=== PATIENT | male | born 1960 | race Caucasian/White ===

== ENCOUNTER 2016-11-08 09:24 | Inpatient (IN) | payer SELFPAY ==
[2016-11-08] VITALS (7 sets, daily range): BP systolic 137–189; BP diastolic 81–126
[~2016-11-08] VITALS: Ht 175.3 cm; Wt 88.2 kg
--- NOTE | ~2016-11-08 | WRIGHTHP ---
[place], [place] PATIENT HISTORY AND PHYSICAL EXAM NAME: SANTOS CARVALHO [facility] #: [id number] UNIT #: [id number] ROOM: 425 DOCTOR: NOAH ROSAS MD BIRTHDATE: [birth year] DOS: 11/08/2016 HISTORY OF PRESENT ILLNESS: 1. The patient is a 56-year-old gentleman with a past medical history of CVA with no residual weakness. 2. Hypertension. 3. Fatty liver The patient presented to the Emergency Department at [facility] with complaints of dizziness, nausea, headache and elevated blood pressures. The patient had one half an hour episode of headache couple of days earlier and then headache started before admission and is persisting, he has it in the right and back of the head. CT scan of the head performed in the ER and was negative. The patient's potassium was found to be low. The patient was admitted because of chest pain reported by ER. The patient is asymptomatic other than the headache. The patient stated he gets dizzy when he looks self, but he is not complaining of any photosensitivity or sensitivity to sound. Headache is mainly on his left side. REVIEW OF SYSTEMS: LUNGS: Without increased shortness of breath or wheezing. GASTROINTESTINAL: Patient with nausea, no diarrhea. CARDIOVASCULAR: No chest pains or palpitations. ALLERGIES: NITROGLYCERIN. PHYSICAL EXAMINATION: GENERAL: Alert, oriented x 3, in no visible distress. VITAL SIGNS: Blood pressure 137/81, heart rate 65 beats per minute, breathing 20 times per minute, temperature 98 degrees Fahrenheit. LABORATORY DATA: CT of the head without acute changes. Normal serum electrolytes except for potassium of 3.4. PT, PTT were baseline, normal CBC. IMPRESSION: 1. The patient presenting with left-sided headache, possibly migraine with nausea, which has resolved now. No photophobia. No sound sensitivity. I will treat the patient with ____ 100% oxygen and see if his headaches resolved. The patient has been treated with Toradol and then Tylenol for his headache. 2. Chest pain reported by the Emergency Department, although the patient denies it now. Cardiac enzymes are ordered and a cardiology consult obtained with Dr. Grossman. 3. Benign essential hypertension with elevated blood pressures at admission have normalized now. I will continue with lisinopril and metoprolol, which he was taking at home. 4. Hypokalemia, treated with extra potassium supplements. I will repeat serum electrolytes tomorrow. [place], [place] PATIENT HISTORY AND PHYSICAL EXAM NAME: SANTOS CARVALHO UNIT #: [id number] ROOM: [facility] DOCTOR: NOAH ROSAS MD BIRTHDATE: [birth year] NOAH ROSAS MD CM:HISPHYS:PATIENT HISTORY AND PHYSICAL EXAMINATION [phone] NOAH ROSAS MD 11/08/16 2258 interface
--- NOTE | ~2016-11-08 | CON ---
[place], [place] REPORT OF CONSULTATION [id number] UNIT #: [id number] ROOM: 425 DOCTOR: ESTELLA MORALES MD BIRTHDATE: [birth year] DOS: 11/08/2016 REASON FOR CONSULTATION: Irregular heartbeats, dizziness. HISTORY OF PRESENT ILLNESS: The patient is a 56-year-old man who does have a history of hypertension since about 2008. He states that about that same time, he was told that he also had paroxysmal atrial fibrillation. He states that he has never received a cardioversion shock and has never been anticoagulated, but he states that he has been evaluated for this at a [facility] and several times by Dr. Arcos in [facility]. The patient is not sure why he has not been on anticoagulation therapy and is prescribed an aspirin. The patient presents to the hospital on this occasion because for the last 3 days, he has had a headache, lightheadedness and nausea; 3 days ago, an episode lasted about 30 minutes and then resolved; 2 days ago, the pain began again in his head and has not resolved. He has not had true vertigo, but feels that if he stands up or even looks up, he will fall. The patient denies chest pain at this time, but has had chest pain in the past. He states that he has had cardiac catheterization in the past including [address] [facility]. Those records are not currently available, but will be requested. PAST MEDICAL HISTORY: Entirely from the patient. It includes the followin. Hypertension documented 2008. 2. Paroxysmal atrial fibrillation documented 2008. 3. Stroke with dizziness and weakness around 2008. 4. Atrial fibrillation with rapid ventricular response and elevated cardiac enzymes, 2014, prompting admission to [facility]. The patient states that he did have a heart catheterization at that time, which was unremarkable. FAMILY HISTORY: Positive for stroke in his mother and uncle. Multiple family members have had heart disease, hypertension and diabetes. REVIEW OF SYSTEMS: The patient denies diplopia or loss of vision. He has been lightheaded and near syncopal for the last 3 days. He has had nausea, but denies vomiting. He denies fevers, chills, sweats or recent weight change. He has been anorectic. He denies orthopnea or PND. He does feel weak, but not focally weak. He denies chest pain. He has had headaches. He denies change in bowel or bladder habits. He denies blood in his stools or urine. He denies any skin rashes or swollen joints. He denies any peripheral edema. He denies heat or cold intolerance. He denies excessive anxiety or depression. Remainder of the review of systems is negative except as noted above. SOCIAL HISTORY: The patient has never smoked and does not consume excessive amounts of alcohol. He is . PHYSICAL EXAMINATION: GENERAL: The patient is a well-nourished white male who appears his stated age. VITAL SIGNS: Pulse is 65 and regular, blood pressure is 137/81. He is [place], [place] REPORT OF CONSULTATION NAME: SANTOS CARVALHO UNIT #: [id number] ROOM: [facility] DOCTOR: ESTELLA MORALES MD BIRTHDATE: [birth year] afebrile. He weighs 88.2 kg and has a body mass index of 28.7. HEENT: Normocephalic, atraumatic. Extraocular muscles are intact. Sclerae are clear. Pupils are equal, round and reactive to light. The oral mucosa is moist. Tongue is midline. NECK: Supple. He has no jugular distention. Carotids are full. I heard no bruits. He had no neck or supraclavicular masses. LUNGS: Respirations are unlabored. His chest is clear to auscultation and percussion. He has no presacral edema or chest wall tenderness. CARDIOVASCULAR: His heart has a regular rhythm with a soft S4 gallop, but no S3 or murmur. The PMI is not displaced. He has no precordial heave, lift or thrill. ABDOMEN: Soft and normally active without masses, organomegaly or bruits. EXTREMITIES: Showed no edema. Peripheral pulses are easily palpated in the feet bilaterally. LABORATORY DATA: I reviewed his electrocardiogram. It showed sinus rhythm with probable left ventricular hypertrophy, but no acute ST or T-wave changes. His cardiac care nurse shows sinus rhythm. Sodium is 139 with potassium 3.4, chloride 103, CO2 of 27, BUN 18, creatinine 0.98. Sugar (nonfasting) is 124, magnesium 2.3. Troponin level was less than 0.015. INR is 1.0. Hemoglobin 17.1 with hematocrit 49.1. There are 7100 white cells and 235,000 platelets present. IMPRESSIONS: 1. Lightheadedness and near syncope, etiology to be determined. 2. History of hypertension. 3. Atypical chest pain. The patient reports that he had a heart catheterization in 2014 that was unremarkable. 4. Paroxysmal atrial fibrillation. The patient reports this has been present since 2008. Unfortunately, I have no documentation of atrial arrhythmias at this point. 5. CHADS-VASc score equals 3 if the patient's history of hypertension and stroke are reliable. This predicts a high risk for stroke if he does have atrial fibrillation. PLAN: It seems remarkable to me that the patient has had multiple episodes of atrial fibrillation as he reports and yet we have no documentation of that here and he has never been placed on anticoagulation therapy. If he truly does have paroxysmal atrial fibrillation, his risk of stroke is high and he should be anticoagulated systemically. For now, I will start him on subcutaneous enoxaparin in therapeutic doses of 1 mg/kg q. 12 hours. I will also start a thiazide diuretic to try to improve his blood pressure control and change his metoprolol tartrate from 50 mg once a day to 25 mg twice a day. His other medications will stay the same. We will request records from [facility] from 2015 where he states he was treated for atrial fibrillation and also had a heart catheterization. Further recommendations will depend upon documentation received. I will be checking an echocardiogram at this time as well. We thank Dr. Micah Sotelo for asking our advice regarding the management of this patient. [place], [place] REPORT OF CONSULTATION NAME: SANTOS CARVALHO UNIT #: [id number] ROOM: 425 DOCTOR: ESTELLA MORALES MD BIRTHDATE: [birth year] ESTELLA MORALES MD CM:CONSTR:REPORT OF CONSULTATION 20 11/09/16 0058 interface
--- NOTE | ~2016-11-08 | DS ---
[place], [place] DISCHARGE SUMMARY NAME: SANTOS CARVALHO UNIT #: [id number] ROOM: 425 DOCTOR: NOAH ROSAS MD BIRTHDATE: [birth year] DOS: 11/09/2016 DISCHARGE DIAGNOSES: 1. The patient is getting evaluated by cardiology. 2. Hypertension with elevated blood pressures, atypical chest pains for which the patient's cardiac enzymes were checked and were found to be normal. 3. Benign essential hypertension. The patient is being evaluated for paroxysmal atrial fibrillation by Dr. Ky Grossman. Dr. Grossman is trying to get records on him and if he does have paroxysmal atrial fibrillation, then he has a CHADS-VASc score of 3 and would require anticoagulation. Dr. Grossman to follow on this. Persistent headaches from uncertain etiology, not relieved with oxygen, Toradol, Tylenol or even Dilaudid. I am getting an MRI of the brain. If normal, he can be discharged to home to follow up with his PCP, Dr. Harjit Zamora who can get an expert opinion on his headaches. I plan to discharge patient today after he gets evaluated by Dr. Grossman for AFib and if his blood pressure well controlled. I am increasing the dose of his metoprolol to 50 mg b.i.d. because of persistently elevated blood pressures. Hypokalemia, resolved with extra dose of potassium. DISCHARGE MANAGEMENT: Would be after the patient has MRI and after clearance from cardiology, the patient can be discharged to home on Tylenol 1000 mg t.i.d. p.r.n. for headache, lisinopril 20 mg b.i.d., metoprolol 50 mg b.i.d., Ecotrin 81 mg a day, hydrochlorothiazide 12.5 mg daily. Follow up with Dr. Harjit Zamora within 2 days of discharge and follow up with Dr. Ky Grossman, the briquette operator. [place], [place] DISCHARGE SUMMARY NAME: SANTOS CARVALHO UNIT #: [id number] ROOM: 425 DOCTOR: NOAH ROSAS MD BIRTHDATE: [birth year] NOAH ROSAS MD CM:SHANNAN [id number] NOAH ROSAS MD 11/09/16 1748 interface
[~2016-11-08 09:24] MED LIST: METOPROLOL100 MG PO; TOBRADEX 0.1%-0.5 ML OPH; ZOFRAN ODT4 MG SL
[2016-11-08] MEDS ORDERED: LISINOPRIL20 MG PO (09:33)
[2016-11-08] MEDS ORDERED: ASPIRIN CHEWABL81 MG PO (09:33)
[2016-11-08 10:05] LABS: BASO % 0.6 % (0.0-1.0); EOS # 0.2 10*3/uL (0.0-0.4); EOS % 2.3 % (1.0-4.0); HEMATOCRIT 49.1 % (42.0-52.0); HEMOGLOBIN 17.1 g/dl (14.0-18.0); LYMPH # 2.1 10*3/uL (1.3-4.4); LYMPH % 29.2 % (27.0-41.0); MEAN CELL VOLUME 83.1 fl (80.0-94.0); MEAN CORPUSCULAR HGB 28.9 pg (27.0-31.0); MEAN CORPUSCULAR HGB CONC 34.8 g/dl (33.0-37.0); MEAN PLATELET VOLUME 9.3 fl (9.6-12.3); MONO # 0.5 10*3/uL (0.1-1.0); MONO % 7.5 % (3.0-9.0); NEUT # 4.2 10*3/uL (2.3-7.9); PLATELET COUNT AUTOMATED 235 10*3/uL (130-400); RED BLOOD COUNT 5.91 10*6/uL (4.50-5.90); RED CELL DISTRI WIDTH 12.2 % (0-14.5); WHITE BLOOD COUNT 7.1 10*3/uL (4.8-10.8)
[2016-11-08 10:12] LABS: PROTHROMBIN TIME 10.6 SECONDS (9.0-12.4)
[2016-11-08 10:22] LABS: ALBUMIN 3.7 gm/dl (3.1-4.5); ALKALINE PHOSPHATASE 85 U/L (45-117); BILIRUBIN, TOTAL 0.5 mg/dl (0.2-1.0); BUN 8 mg/dl (7-24); CARBON DIOXIDE 27 mmol/L (21-32); CHLORIDE 103 mmol/L (98-107); EST GLOM FILT AFRICAN AMERICAN > 60 ml/min; GLUCOSE 124 mg/dL (65-99); MAGNESIUM 2.3 mg/dL (1.5-2.1); POTASSIUM 3.4 mmol/L (3.5-5.1); SGOT/AST 36 IU/L (3-35); SGPT/ALT 61 U/L (12-78); SODIUM 139 mmol/L (136-145); TOTAL PROTEIN 7.8 gm/dL (6.4-8.2)
[2016-11-08 10:31] LABS: TROPONIN I < 0.015 ng/ml (<0.045)
[2016-11-08] MEDS ORDERED: LOPRESSOR50 M1 PO (12:45)
[2016-11-09] VITALS: BP 155/80
[2016-11-09 04:56] LABS: BILIRUBIN NEGATIVE (NEGATIVE); BLOOD NEGATIVE (NEGATIVE); CLARITY CLEAR (CLEAR); COLOR YELLOW (YELLOW); GLUCOSE 2+ (NEGATIVE); KETONE NEGATIVE (NEGATIVE); LEUKO ESTERASE NEGATIVE (NEGATIVE); NITRITE NEGATIVE (NEGATIVE); PH 6.5 (5.0-9.0); PROTEIN NEGATIVE (NEGATIVE); SPECIFIC GRAVITY 1.015 (1.005-1.030)
[2016-11-09 05:07] LABS: RBC 0-2 rbc/hpf (0-2); WBC 0-2 wbc/hpf (0-5)
[2016-11-09 08:00] VITALS: BP 170/98
[2016-11-09 08:53] LABS: BUN 8 mg/dl (7-24); CARBON DIOXIDE 29 mmol/L (21-32); CHLORIDE 103 mmol/L (98-107); EST GLOM FILT AFRICAN AMERICAN > 60 ml/min; GLUCOSE 112 mg/dL (65-99); POTASSIUM 4.1 mmol/L (3.5-5.1); SODIUM 139 mmol/L (136-145)
[2016-11-09] MEDS ORDERED: LOPRESSOR50 M1 PO (10:04)
[2016-11-09] MEDS ORDERED: HYDR12.5C PO (10:04)
[2016-11-09 12:00] VITALS: BP 162/90
== END 2016-11-09 16:00 | disposition home or self-care (01) | DRG 313 ==
LOC: ED 09:24 → EDHOLD 11:44 → 4E 11:54
PROVIDERS: Internal Medicine; Nurse Practitioner Family
DX: R07.89 Other chest pain (principal); I10 Essential (primary) hypertension; R51 Headache; E87.6 Hypokalemia; I48.91 Unspecified atrial fibrillation; Z86.73 Personal history of transient ischemic attack (TIA), and cerebral infarction without residual deficits; Z88.8 Allergy status to other drugs, medicaments and biological substances; Z82.3 Family history of stroke; Z82.49 Family history of ischemic heart disease and other diseases of the circulatory system; Z83.3 Family history of diabetes mellitus

== ENCOUNTER 2017-08-12 20:37 | Emergency (ER) | payer BC ==
[~2017-08-12] VITALS: Ht 175.2 cm; Wt 87.5 kg
[~2017-08-12 20:37] MED LIST changes: +ASPIRIN CHEWABL81 MG PO; +HYDR12.5C PO; +LISINOPRIL20 MG PO; +LOPRESSOR50 M1 PO
[2017-08-12 21:07] LABS: BASO % 0.4 % (0.0-1.0); EOS # 0.1 10*3/uL (0.0-0.4); EOS % 0.5 % (1.0-4.0); HEMATOCRIT 43.1 % (42.0-52.0); HEMOGLOBIN 15.2 g/dl (14.0-18.0); LYMPH # 1.2 10*3/uL (1.3-4.4); LYMPH % 10.8 % (27.0-41.0); MEAN CELL VOLUME 84.2 fl (80.0-94.0); MEAN CORPUSCULAR HGB 29.7 pg (27.0-31.0); MEAN CORPUSCULAR HGB CONC 35.3 g/dl (33.0-37.0); MEAN PLATELET VOLUME 9.8 fl (9.6-12.3); MONO # 1.1 10*3/uL (0.1-1.0); MONO % 9.6 % (3.0-9.0); NEUT # 8.8 10*3/uL (2.3-7.9); NEUT % 78.2 % (47.0-73.0); PLATELET COUNT AUTOMATED 209 10*3/uL (130-400); RED BLOOD COUNT 5.12 10*6/uL (4.50-5.90); RED CELL DISTRI WIDTH 12.5 % (0-14.5); WHITE BLOOD COUNT 11.2 10*3/uL (4.8-10.8)
[2017-08-12 21:17] LABS: ACT PARTIAL THROMBO TIME 22.1 SECONDS (20.8-31.5); INTERNATIONAL NORM RATIO 0.9 (2.0-3.5)
[2017-08-12 21:23] LABS: ALBUMIN 3.6 gm/dl (3.1-4.5); ALKALINE PHOSPHATASE 94 U/L (45-117); BUN 13 mg/dl (7-24); CHLORIDE 100 mmol/L (98-107); CREATININE 1.24 mg/dL (0.70-1.30); LIPASE 167 U/L (73-393); POTASSIUM 3.5 mmol/L (3.5-5.1); SGOT/AST 37 IU/L (3-35); SGPT/ALT 61 U/L (12-78); SODIUM 138 mmol/L (136-145); TOTAL PROTEIN 7.6 gm/dL (6.4-8.2)
[2017-08-12 21:24] LABS: TROPONIN I < 0.015 ng/ml (<0.045)
[2017-08-12] MEDS ORDERED: Zofran4 MG PO (22:53)
[2017-08-12] MEDS ORDERED: DICYCLOMINE HCL10 MG PO (22:53)
[2017-08-12 22:59] VITALS: BP 142/100
== END 2017-08-12 23:27 | disposition home or self-care (01) ==
LOC: ED 20:37
PROVIDERS: Nurse Practitioner Family
DX: A08.4 Viral intestinal infection, unspecified (principal); Z88.1 Allergy status to other antibiotic agents; Z79.82 Long term (current) use of aspirin; Z79.899 Other long term (current) drug therapy

== ENCOUNTER 2017-10-30 06:47 | Emergency (ER) | payer BC ==
[~2017-10-30] VITALS: Ht 175.2 cm; Wt 89.8 kg
[~2017-10-30 06:47] MED LIST changes: +DICYCLOMINE HCL10 MG PO; +Zofran4 MG PO
[2017-10-30 06:53] VITALS: BP 168/99
== END 2017-10-30 07:35 | disposition home or self-care (01) ==
LOC: ED 06:47
DX: H93.8X1 Other specified disorders of right ear (principal); I48.91 Unspecified atrial fibrillation; Z88.8 Allergy status to other drugs, medicaments and biological substances; Z79.899 Other long term (current) drug therapy; Z79.82 Long term (current) use of aspirin

== ENCOUNTER 2018-03-20 19:05 | Emergency (ER) | payer BC ==
[~2018-03-20] VITALS: Wt 87.1 kg
[2018-03-20 19:05] VITALS: BP 157/91
[2018-03-20] MEDS ORDERED: AMOXICILLIN500 M2 PO (19:31)
== END 2018-03-20 19:33 | disposition home or self-care (01) ==
LOC: ED 19:05
DX: H66.92 Otitis media, unspecified, left ear (principal); Z88.8 Allergy status to other drugs, medicaments and biological substances; Z79.82 Long term (current) use of aspirin; Z79.899 Other long term (current) drug therapy

== ENCOUNTER 2018-09-19 19:17 | Emergency (ER) | payer MEDICAID ==
[~2018-09-19] VITALS: Ht 175.2 cm; Wt 88.5 kg
--- NOTE | ~2018-09-19 | EKG ---
[place], [place] ELECTROCARDIOGRAM REPORT NAME: SANTOS CARVALHO UNIT #: [id number] ROOM: DOCTOR: EPIPHANY DRAFT REPORT BIRTHDATE: [birth year] [facility] Test Date: 2018-09-19 Test Time: 19:34:10 Pat Name: SANTOS CARVALHO Department: ER Room: 2 Gender: M Dining Room Hostess: Sarahy Maxwell : 1960 Requested By: YANA CHOI Order Number: [id number] Reading MD: Ignacio Barry MD Measurements Intervals [place] Rate: 71 P: 43 IA: 151 QRS: 13 QRSD: 99 T: 3 QT: 419 QTc: 456 Interpretive Statements Sinus rhythm Left ventricular hypertrophy Electronically Signed On 09-21-2018 9:32:13 PDT by Ignacio Barry MD CM:EKGRPT:ELECTROCARDIOGRAM REPORT [phone] YANA CHOI MD EPIPHANY DRAFT REPORT YANA CHOI MD
[~2018-09-19 19:17] MED LIST changes: +AMOXICILLIN500 M2 PO
[2018-09-19 20:04] LABS: BASO # 0.1 10*3/uL (0.0-0.1); BASO % 0.6 % (0.0-1.0); EOS # 0.2 10*3/uL (0.0-0.4); EOS % 2.2 % (1.0-4.0); HEMATOCRIT 43.7 % (42.0-52.0); HEMOGLOBIN 15.2 g/dl (14.0-18.0); LYMPH # 2.6 10*3/uL (1.3-4.4); LYMPH % 29.9 % (27.0-41.0); MEAN CORPUSCULAR HGB 29.6 pg (27.0-31.0); MEAN CORPUSCULAR HGB CONC 34.8 g/dl (33.0-37.0); MEAN PLATELET VOLUME 9.4 fl (9.6-12.3); MONO # 0.6 10*3/uL (0.1-1.0); MONO % 6.7 % (3.0-9.0); NEUT # 5.2 10*3/uL (2.3-7.9); NEUT % 60.1 % (47.0-73.0); PLATELET COUNT AUTOMATED 230 10*3/uL (130-400); RED BLOOD COUNT 5.14 10*6/uL (4.50-5.90); RED CELL DISTRI WIDTH 12.4 % (0-14.5); WHITE BLOOD COUNT 8.6 10*3/uL (4.8-10.8)
[2018-09-19 20:13] LABS: BILIRUBIN NEGATIVE (NEGATIVE); BLOOD NEGATIVE (NEGATIVE); CLARITY CLEAR (CLEAR); COLOR YELLOW (YELLOW); GLUCOSE NEGATIVE (NEGATIVE); KETONE NEGATIVE (NEGATIVE); LEUKO ESTERASE NEGATIVE (NEGATIVE); NITRITE NEGATIVE (NEGATIVE); SPECIFIC GRAVITY 1.015 (1.005-1.030); UROBILINOGEN 0.2 E.U./dl (0.2-1.0)
[2018-09-19 20:14] LABS: ACT PARTIAL THROMBO TIME 23.8 SECONDS (20.8-31.5)
[2018-09-19 20:19] LABS: ALBUMIN 3.8 gm/dl (3.1-4.5); ALKALINE PHOSPHATASE 85 U/L (45-117); BUN 13 mg/dl (7-24); CREATININE 1.13 mg/dL (0.70-1.30); SGOT/AST 44 IU/L (3-35); SGPT/ALT 78 U/L (12-78); TOTAL PROTEIN 7.7 gm/dL (6.4-8.2)
[2018-09-19 20:26] LABS: CHLORIDE 104 mmol/L (98-107); POTASSIUM 3.6 mmol/L (3.5-5.1); SODIUM 140 mmol/L (136-145); TROPONIN I < 0.015 ng/ml (<0.045)
[2018-09-19 20:28] LABS: BACTERIA 1+; EPITHELIAL CELLS 0-2; WBC 0-2 wbc/hpf (0-5)
[2018-09-19 22:11] VITALS: BP 155/108
[2018-09-19] MEDS ORDERED: ZOFRAN4 MG PO (22:38)
[2018-09-27] MEDS ORDERED: METOPROLOL TART50 M1 PO (22:22)
[2018-09-27] MEDS ORDERED: ENALAPRIL MALEA20 MG PO (22:22)
[2018-09-27] MEDS ORDERED: HYDROCHLOROTH12.5 M2 PO (22:23)
== END 2018-09-19 22:58 | disposition home or self-care (01) ==
LOC: ED 19:17
PROVIDERS: Emergency Medicine Emergency Medical Services
DX: R42 Dizziness and giddiness (principal); I10 Essential (primary) hypertension; Z79.82 Long term (current) use of aspirin; Z79.899 Other long term (current) drug therapy; Z88.8 Allergy status to other drugs, medicaments and biological substances

== ENCOUNTER 2019-07-05 16:19 | Inpatient (IN) | payer BC, OTHER ==
[~2019-07-05] VITALS: Ht 175.2 cm; Wt 88.9 kg
[~2019-07-05 16:19] MED LIST changes: +ENALAPRIL MALEA20 MG PO; +HYDROCHLOROTH12.5 M2 PO; +METOPROLOL TART50 M1 PO; +ZOFRAN4 MG PO
[2019-07-05 16:27] VITALS: BP 133/80
[2019-07-05 16:42] LABS: BASO # 0.1 10*3/uL (0.0-0.1); BASO % 0.6 % (0.0-1.0); EOS # 0.2 10*3/uL (0.0-0.4); EOS % 1.8 % (1.0-4.0); HEMATOCRIT 43.6 % (42.0-52.0); HEMOGLOBIN 15.3 g/dl (14.0-18.0); LYMPH # 1.9 10*3/uL (1.3-4.4); LYMPH % 19.1 % (27.0-41.0); MEAN CORPUSCULAR HGB 30.2 pg (27.0-31.0); MEAN CORPUSCULAR HGB CONC 35.1 g/dl (33.0-37.0); MEAN PLATELET VOLUME 9.4 fl (9.6-12.3); MONO # 0.8 10*3/uL (0.1-1.0); MONO % 8.5 % (3.0-9.0); NEUT # 6.7 10*3/uL (2.3-7.9); NEUT % 69.4 % (47.0-73.0); PLATELET COUNT AUTOMATED 260 10*3/uL (130-400); RED BLOOD COUNT 5.07 10*6/uL (4.50-5.90); RED CELL DISTRI WIDTH 12.2 % (0-14.5); WHITE BLOOD COUNT 9.7 10*3/uL (4.8-10.8)
[2019-07-05 16:53] LABS: ACT PARTIAL THROMBO TIME 25.6 SECONDS (20.0-32.1)
[2019-07-05 17:05] LABS: ALBUMIN 3.9 gm/dl (3.1-4.5); ALKALINE PHOSPHATASE 89 U/L (45-117); BUN 12 mg/dl (7-24); CHLORIDE 103 mmol/L (98-107); CREATININE 1.06 mg/dL (0.70-1.30); POTASSIUM 3.6 mmol/L (3.5-5.1); SGOT/AST 28 IU/L (3-35); SGPT/ALT 55 U/L (12-78); SODIUM 138 mmol/L (136-145); TOTAL PROTEIN 7.8 gm/dL (6.4-8.2)
[2019-07-05 17:06] LABS: TROPONIN I < 0.015 ng/ml (<0.045)
--- NOTE | 2019-07-05 17:23 | NUR ---
PT TO CT AT THIS TIME.
[2019-07-05 17:26] VITALS: BP 134/86
[2019-07-05 18:06] VITALS: BP 114/71
[2019-07-05 18:34] VITALS: BP 108/72
--- NOTE | 2019-07-05 19:00 | NUR ---
NURSE TO NURSE REPORT GIVEN.
[2019-07-05 20:04] VITALS: BP 111/68
[2019-07-05 21:45] VITALS: BP 146/84; BP 146/86
--- NOTE | 2019-07-05 21:45 | NUR ---
A 58, admitted to , under the services of ADRYAN Dennis DO with a diagnosis of SYNCOPE. Chief complaint is DIZZY. Patient arrived via bed from ER. Monitor applied. Initial assessment completed. Vital signs taken and recorded. ADRYAN DENNIS DO notified of admission to the unit. Orders received. See assessment for past medical history, medications and allergies. Patient and/or family oriented to unit. [facility] visitation policy reviewed. Clothing/patient valuable form completed. SAM DOW
[2019-07-05] MEDS ORDERED: ELIQUIS5 M1 PO (21:57)
[2019-07-05] MEDS ORDERED: ATORVASTATIN CA80 M1 PO (21:57)
[2019-07-05] MEDS ORDERED: AMLODIPINE BESY10 MG PO (21:57)
[2019-07-05] MEDS ORDERED: VITAMIN D32000 UNI1 PO (21:59)
[2019-07-05] MEDS ORDERED: CLOPIDOGREL75 MG PO (22:00)
[2019-07-06] VITALS: BP 111/67
--- NOTE | 2019-07-06 | NUR ---
ANSWERING SERVICE NOTIFIED OF CONSULT
--- NOTE | 2019-07-06 03:03 | NUR ---
DR MONROE NOTIFIED OF PT'S HR DOWN TO 44. STATES TO ORDER EKG
--- NOTE | 2019-07-06 03:05 | NUR ---
PATIENT ASYMPTOMATIC WITH HR 40-50'S, PT REPORTS NO COMPLAINTS OR DIZZINESS, VITAL SIGNS TAKEN AND STABLE.
[2019-07-06 03:14] VITALS: BP 122/82
--- NOTE | 2019-07-06 04:09 | NUR ---
DR MONROE AND DR PRIDE ON FLOOR STATE TO NOTIFY IF HR <40
[2019-07-06 06:26] LABS: BASO # 0.1 10*3/uL (0.0-0.1); BASO % 0.6 % (0.0-1.0); EOS # 0.2 10*3/uL (0.0-0.4); EOS % 2.3 % (1.0-4.0); HEMATOCRIT 41.7 % (42.0-52.0); HEMOGLOBIN 14.3 g/dl (14.0-18.0); LYMPH # 1.9 10*3/uL (1.3-4.4); LYMPH % 22.5 % (27.0-41.0); MEAN CELL VOLUME 86.9 fl (80.0-94.0); MEAN CORPUSCULAR HGB 29.8 pg (27.0-31.0); MEAN CORPUSCULAR HGB CONC 34.3 g/dl (33.0-37.0); MEAN PLATELET VOLUME 9.4 fl (9.6-12.3); MONO # 0.8 10*3/uL (0.1-1.0); MONO % 9.5 % (3.0-9.0); NEUT # 5.5 10*3/uL (2.3-7.9); NEUT % 64.6 % (47.0-73.0); PLATELET COUNT AUTOMATED 236 10*3/uL (130-400); RED CELL DISTRI WIDTH 12.3 % (0-14.5); WHITE BLOOD COUNT 8.5 10*3/uL (4.8-10.8)
[2019-07-06 06:56] LABS: BUN 13 mg/dl (7-24); CHLORIDE 104 mmol/L (98-107); CHOLESTEROL 108 mg/dL (<200); HDL CHOLESTEROL 26 mg/dl (40-60); LDL CHOLESTEROL 61 mg/dL (9-159); PHOSPHOROUS 3.3 mg/dL (2.5-4.9); POTASSIUM 3.4 mmol/L (3.5-5.1); SODIUM 139 mmol/L (136-145); TRIGLYCERIDES 105 mg/dl (<150); VLDL CHOLESTEROL 21 mg/dL (6-40)
--- NOTE | 2019-07-06 07:30 | NUR ---
PT RESTING IN BED. VOICES NO CONCERNS AT THIS TIME.RESPS EASY AND NON LABORED. NO S/S OF DISTRESS NOTED. VSS. WHITE BOARD UPDATED. CALL LIGHT WITHIN REACH
[2019-07-06 07:51] LABS: VITAMIN D, 25-HYDROXY 22.4 ng/mL (30-100)
[2019-07-06 08:00] VITALS: BP 130/78
[2019-07-06 12:00] VITALS: BP 106/70
[2019-07-06 16:00] VITALS: BP 112/59
[2019-07-06 20:00] VITALS: BP 121/65
[2019-07-07] VITALS: BP 135/72
[2019-07-07 06:49] LABS: BUN 11 mg/dl (7-24); CHLORIDE 107 mmol/L (98-107); CREATININE 0.93 mg/dL (0.70-1.30); POTASSIUM 3.5 mmol/L (3.5-5.1); SODIUM 140 mmol/L (136-145)
--- NOTE | 2019-07-07 07:23 | NUR ---
24 HR chart check completed.
[2019-07-07 08:00] VITALS: BP 140/78
--- NOTE | 2019-07-07 09:00 | NUR ---
RESTING IN BED WITH NO DISTRESS NOTED. RESPIRATIONS EASY. LUNGS DIMINISHED, CLEAR. PULSE OX 98% RA. VSS. CALL LIGHT WITHIN REACH. NO VOICED COMPLAINTS
[2019-07-07 12:00] VITALS: BP 135/72
--- NOTE | 2019-07-07 13:00 | NUR ---
NO VOICED COMPLAINTS
[2019-07-07 16:00] VITALS: BP 138/82; BP 150/92
--- NOTE | 2019-07-07 17:00 | NUR ---
LASYING IN BED WATCHING TV. NO DISTRESS NOTED. NO VOICED COMPLAINTS
[2019-07-07 20:00] VITALS: BP 126/72
[2019-07-08] VITALS: BP 118/76
[2019-07-08 08:00] VITALS: BP 122/68
--- NOTE | 2019-07-08 09:00 | NUR ---
Election Clerk in to talk to patient. Patient states lives at home with alone. There are no steps in the home. Physician: christi liu [facility]acy: [facility] Home health services: none Patient's level of ADLs: INDEPENDENT Patient has working utilities: all working DME: none Follow-up physician's appointment after d/c: will be made by hospitalist nurse director upon discharge Does patient want to access PORTAL?: no Discharge plan discussed with patient, he lives at home, is independent in adls and ambualtion, states he will return home when medically stable and denies any home needs, case management will follow. LISA WILD
--- NOTE | 2019-07-08 10:58 | NUR ---
INFORMED CONSENT SIGNED FOR LEXISCAN STRESS TEST WITH DR. ALMEIDA. RESTING EKG SINUS BRADYCADIA, HR 59, BP 140/92. PULSE OX 97% AND LUNGS CLEAR BILATERALLY. COMPLETED ONE MINUTE OF LEXISCAN PROTOCOL RECEIVING LEXISCAN 0.4MG OVER [address] CHANGES NOTED WITH NO ARRHYTHMIAS NOTED. PT C/O FEELING WOOZY. LAST RECOVERY HR 83, BP 132/90. WAITING NUCLEAR SCANNING IN STABLE CONDITION.
[2019-07-08 12:00] VITALS: BP 146/89
[2019-07-08] MEDS ORDERED: METOPROLOL SUCC25 M2 PO (14:46)
--- NOTE | 2019-07-08 16:15 | NUR ---
Discharge instructions reviewed with patient/family. Patient receptive and verbalizes understanding. Follow-up care arranged. Written instructions given to patient/family. Patient was educated on prescription changes and follow up appointments with and [facility]. Patient amubulated from unit with all personal belongings accounted for. DIMA JOHNSON
== END 2019-07-08 16:15 | disposition home or self-care (01) | DRG 206 ==
LOC: ED 16:19 → EDHOLD 21:15 → 4E 21:15
PROVIDERS: Emergency Medicine; Family Medicine; Student in an Organized Health Care Education/Training Program; ADMIT Family Medicine
PROC: 3E073KZ Introduction of Other Diagnostic Substance into Coronary Artery, Percutaneous Approach (ICD-10-PCS; principal; 2019-07-08)
PROC: 4A02XM4 Measurement of Cardiac Total Activity, External Approach (ICD-10-PCS; principal; 2019-07-08)
DX: M94.0 Chondrocostal junction syndrome [Tietze] (principal); R55 Syncope and collapse; D72.810 Lymphocytopenia; R73.9 Hyperglycemia, unspecified; I48.0 Paroxysmal atrial fibrillation; I10 Essential (primary) hypertension; G47.33 Obstructive sleep apnea (adult) (pediatric); H53.50 Unspecified color vision deficiencies; E87.6 Hypokalemia; Z86.73 Personal history of transient ischemic attack (TIA), and cerebral infarction without residual deficits; I25.2 Old myocardial infarction; Z80.0 Family history of malignant neoplasm of digestive organs; Z80.6 Family history of leukemia; Z83.3 Family history of diabetes mellitus; Z88.8 Allergy status to other drugs, medicaments and biological substances; Z79.01 Long term (current) use of anticoagulants; Z79.899 Other long term (current) drug therapy

== ENCOUNTER → 2020-03-12 | Outpatient (CLI) | payer BC ==
[~2020-03-12] MED LIST changes: +AMLODIPINE BESY10 MG PO; +ATORVASTATIN CA80 M1 PO; +CLOPIDOGREL75 MG PO; +ELIQUIS5 M1 PO; +METOPROLOL SUCC25 M2 PO; +VITAMIN D32000 UNI1 PO
[2020-03-12 12:27] LABS: HEMATOCRIT 42.6 % (42.0-52.0); MEAN CORPUSCULAR HGB 28.9 pg (27.0-31.0); MEAN PLATELET VOLUME 9.5 fl (9.6-12.3); RED BLOOD COUNT 5.01 10*6/uL (4.50-5.90); RED CELL DISTRI WIDTH 12.4 % (0-14.5); WHITE BLOOD COUNT 8.2 10*3/uL (4.8-10.8)
[2020-03-12 12:59] LABS: ALBUMIN 3.6 gm/dl (3.1-4.5); ALKALINE PHOSPHATASE 102 U/L (45-117); BUN 7 mg/dl (7-24); CHLORIDE 105 mmol/L (98-107); CHOLESTEROL 180 mg/dL (<200); CREATININE 0.95 mg/dL (0.70-1.30); HDL CHOLESTEROL 36 mg/dl (40-60); LDL CHOLESTEROL 114 mg/dL (9-159); POTASSIUM 4.2 mmol/L (3.5-5.1); SGOT/AST 47 IU/L (3-35); SGPT/ALT 94 U/L (12-78); SODIUM 138 mmol/L (136-145); TOTAL PROTEIN 7.4 gm/dL (6.4-8.2); TRIGLYCERIDES 150 mg/dl (<150); VLDL CHOLESTEROL 30 mg/dL (6-40)
[2020-03-12 13:17] LABS: VITAMIN D, 25-HYDROXY 24.3 ng/mL (30-100)
== END | disposition home or self-care (01) ==
LOC: LAB 11:52
PROVIDERS: ATTEND Family Medicine
DX: Z12.5 Encounter for screening for malignant neoplasm of prostate (principal); E55.9 Vitamin D deficiency, unspecified; E79.9 Disorder of purine and pyrimidine metabolism, unspecified; E78.00 Pure hypercholesterolemia, unspecified; I10 Essential (primary) hypertension; I63.9 Cerebral infarction, unspecified

== ENCOUNTER → 2020-04-27 | Outpatient (CLI) | payer BC | END | disposition home or self-care (01) | LOC: RAD 13:58 | PROVIDERS: ATTEND Family Medicine | DX: M54.5 Low back pain (principal); M79.662 Pain in left lower leg ==

== ENCOUNTER → 2020-08-17 | Outpatient (CLI) | payer OTHER ==
[2020-08-17 12:22] LABS: HEMATOCRIT 49.5 % (42.0-52.0); MEAN CELL VOLUME 86.1 fl (80.0-94.0); MEAN CORPUSCULAR HGB CONC 33.7 g/dl (33.0-37.0); MEAN PLATELET VOLUME 9.4 fl (9.6-12.3); RED BLOOD COUNT 5.75 10*6/uL (4.50-5.90); RED CELL DISTRI WIDTH 12.1 % (0-14.5); WHITE BLOOD COUNT 8.8 10*3/uL (4.8-10.8)
[2020-08-17 12:38] LABS: ALBUMIN 3.8 gm/dl (3.1-4.5); BUN 13 mg/dl (7-24); CHLORIDE 104 mmol/L (98-107); CHOLESTEROL 223 mg/dL (<200); HDL CHOLESTEROL 42 mg/dl (40-60); LDL CHOLESTEROL 153 mg/dL (9-159); SGPT/ALT 127 U/L (12-78); SODIUM 136 mmol/L (136-145); TOTAL PROTEIN 8.1 gm/dL (6.4-8.2); TRIGLYCERIDES 141 mg/dl (<150); VLDL CHOLESTEROL 28 mg/dL (6-40)
[2020-08-17 12:43] LABS: ALKALINE PHOSPHATASE 98 U/L (45-117); FREE T4 0.88 ng/dl (0.76-1.46); SGOT/AST 62 IU/L (3-35)
== END | disposition home or self-care (01) ==
LOC: LAB 11:52
PROVIDERS: ATTEND Family Medicine
DX: E78.00 Pure hypercholesterolemia, unspecified (principal); I48.91 Unspecified atrial fibrillation; E11.9 Type 2 diabetes mellitus without complications; I10 Essential (primary) hypertension; I63.9 Cerebral infarction, unspecified; M21.372 Foot drop, left foot

== ENCOUNTER → 2020-09-04 | Outpatient (CLI) | payer OTHER ==
[2020-09-04 07:56] LABS: BASO % 0.4 % (0.0-1.0); EOS # 0.2 10*3/uL (0.0-0.4); EOS % 2.2 % (1.0-4.0); HEMATOCRIT 46.8 % (42.0-52.0); LYMPH # 1.9 10*3/uL (1.3-4.4); LYMPH % 26.3 % (27.0-41.0); MEAN CELL VOLUME 86.7 fl (80.0-94.0); MEAN CORPUSCULAR HGB 29.3 pg (27.0-31.0); MEAN CORPUSCULAR HGB CONC 33.8 g/dl (33.0-37.0); MEAN PLATELET VOLUME 9.5 fl (9.6-12.3); MONO # 0.6 10*3/uL (0.1-1.0); MONO % 8.2 % (3.0-9.0); NEUT # 4.6 10*3/uL (2.3-7.9); NEUT % 62.5 % (47.0-73.0); PLATELET COUNT AUTOMATED 292 10*3/uL (130-400); RED CELL DISTRI WIDTH 12.3 % (0-14.5); WHITE BLOOD COUNT 7.3 10*3/uL (4.8-10.8)
[2020-09-04 08:42] LABS: ALBUMIN 3.9 gm/dl (3.1-4.5); ALKALINE PHOSPHATASE 95 U/L (45-117); BILIRUBIN, DIRECT 0.2 mg/dL (0.0-0.2); BUN 13 mg/dl (7-24); CHLORIDE 105 mmol/L (98-107); CHOLESTEROL 191 mg/dL (<200); CREATININE 1.03 mg/dL (0.70-1.30); HDL CHOLESTEROL 39 mg/dl (40-60); LDL CHOLESTEROL 127 mg/dL (9-159); POTASSIUM 3.6 mmol/L (3.5-5.1); SGOT/AST 41 IU/L (3-35); SGPT/ALT 104 U/L (12-78); SODIUM 139 mmol/L (136-145); TOTAL PROTEIN 8.1 gm/dL (6.4-8.2); TRIGLYCERIDES 125 mg/dl (<150); VLDL CHOLESTEROL 25 mg/dL (6-40)
[2020-09-04 08:49] LABS: THYROID STIM HORMONE (HS) 0.853 uIU/ml (0.358-4.75)
[2020-09-11 13:06] LABS: METHYLMALONIC ACID 168 nmol/L (0-378)
== END | disposition home or self-care (01) ==
LOC: LAB 07:33 → MRI 08:00
PROVIDERS: ATTEND Psychiatry & Neurology Neurology
DX: I63.89 Other cerebral infarction (principal); R29.898 Other symptoms and signs involving the musculoskeletal system

== ENCOUNTER → 2020-09-08 | Outpatient (CLI) | payer OTHER | END | disposition home or self-care (01) | LOC: RAD 17:01 | PROVIDERS: ATTEND Psychiatry & Neurology Neurology | DX: M51.36 Other intervertebral disc degeneration, lumbar region (principal); Q76.49 Other congenital malformations of spine, not associated with scoliosis ==

== ENCOUNTER 2020-09-18 07:35 | Emergency (ER) | payer OTHER ==
[~2020-09-18] VITALS: Ht 175.3 cm; Wt 86.2 kg
[2020-09-18 08:18] VITALS: BP 158/90
[2020-09-18 08:23] LABS: BASO % 0.6 % (0.0-1.0); EOS # 0.2 10*3/uL (0.0-0.4); EOS % 3.1 % (1.0-4.0); HEMATOCRIT 44.9 % (42.0-52.0); LYMPH # 1.5 10*3/uL (1.3-4.4); MEAN CORPUSCULAR HGB 29.5 pg (27.0-31.0); MEAN CORPUSCULAR HGB CONC 34.3 g/dl (33.0-37.0); MEAN PLATELET VOLUME 9.4 fl (9.6-12.3); MONO # 0.5 10*3/uL (0.1-1.0); MONO % 7.9 % (3.0-9.0); NEUT # 4.2 10*3/uL (2.3-7.9); NEUT % 64.9 % (47.0-73.0); PLATELET COUNT AUTOMATED 251 10*3/uL (130-400); RED BLOOD COUNT 5.22 10*6/uL (4.50-5.90); RED CELL DISTRI WIDTH 12.4 % (0-14.5); WHITE BLOOD COUNT 6.4 10*3/uL (4.8-10.8)
[2020-09-18 08:34] LABS: ACT PARTIAL THROMBO TIME 25.7 SECONDS (20.0-32.1)
[2020-09-18 08:39] LABS: ALBUMIN 3.6 gm/dl (3.1-4.5); ALKALINE PHOSPHATASE 85 U/L (45-117); BUN 9 mg/dl (7-24); CHLORIDE 107 mmol/L (98-107); CREATININE 0.91 mg/dL (0.70-1.30); LIPASE 136 U/L (73-393); POTASSIUM 3.7 mmol/L (3.5-5.1); SGOT/AST 26 IU/L (3-35); SGPT/ALT 60 U/L (12-78); SODIUM 139 mmol/L (136-145); TOTAL PROTEIN 7.1 gm/dL (6.4-8.2)
[2020-09-18 08:42] LABS: TROPONIN I < 0.015 ng/ml (<0.045)
== END 2020-09-18 12:52 | disposition home or self-care (01) ==
LOC: ED 07:35
PROVIDERS: Emergency Medicine
DX: H54.7 Unspecified visual loss (principal); Z79.899 Other long term (current) drug therapy; Z88.8 Allergy status to other drugs, medicaments and biological substances

== ENCOUNTER → 2021-02-25 | Outpatient (CLI) | payer OTHER | END | disposition home or self-care (01) | LOC: COVID19 15:42 | PROVIDERS: ATTEND Internal Medicine | DX: U07.1 COVID-19 (principal) ==

== ENCOUNTER 2021-05-28 08:49 | Emergency (ER) | payer OTHER ==
[~2021-05-28] VITALS: Ht 175.2 cm; Wt 87.1 kg
[2021-05-28 09:46] LABS: BASO # 0.1 10*3/uL (0.0-0.1); BASO % 0.6 % (0.0-1.0); EOS # 0.2 10*3/uL (0.0-0.4); EOS % 2.5 % (1.0-4.0); HEMATOCRIT 45.4 % (42.0-52.0); LYMPH # 2.2 10*3/uL (1.3-4.4); LYMPH % 24.9 % (27.0-41.0); MEAN CORPUSCULAR HGB CONC 34.1 g/dl (33.0-37.0); MEAN PLATELET VOLUME 9.1 fl (9.6-12.3); MONO # 0.8 10*3/uL (0.1-1.0); MONO % 8.5 % (3.0-9.0); NEUT # 5.7 10*3/uL (2.3-7.9); NEUT % 63.1 % (47.0-73.0); PLATELET COUNT AUTOMATED 235 10*3/uL (130-400); RED BLOOD COUNT 5.34 10*6/uL (4.50-5.90); RED CELL DISTRI WIDTH 12.9 % (0-14.5)
[2021-05-28 09:59] VITALS: BP 168/96
[2021-05-28 10:09] LABS: ALBUMIN 3.6 gm/dl (3.1-4.5); ALKALINE PHOSPHATASE 74 U/L (45-117); BUN 13 mg/dl (7-24); CHLORIDE 104 mmol/L (98-107); POTASSIUM 4.1 mmol/L (3.5-5.1); SGOT/AST 33 IU/L (3-35); SGPT/ALT 62 U/L (12-78); SODIUM 136 mmol/L (136-145); TOTAL PROTEIN 7.4 gm/dL (6.4-8.2)
[2021-05-28] MEDS ORDERED: AVPAK AZITHROM250 MG PO (10:29)
[2021-05-28] MEDS ORDERED: PREDNISONE50 MG PO (10:29)
== END 2021-05-28 10:33 | disposition home or self-care (01) ==
LOC: ED 08:49
PROVIDERS: Family Medicine
DX: J40 Bronchitis, not specified as acute or chronic (principal); Z20.822 Contact with and (suspected) exposure to COVID-19; Z88.8 Allergy status to other drugs, medicaments and biological substances; Z79.899 Other long term (current) drug therapy; Z98.61 Coronary angioplasty status

== ENCOUNTER 2021-07-20 05:55 | Emergency (ER) | payer OTHER ==
[~2021-07-20] VITALS: Ht 175.2 cm; Wt 87.1 kg
[~2021-07-20 05:55] MED LIST changes: +AVPAK AZITHROM250 MG PO; +PREDNISONE50 MG PO
[2021-07-20 06:05] VITALS: BP 133/85
[2021-07-20] MEDS ORDERED: TYLENOL325 M1 PO (07:35)
[2021-07-20] MEDS ORDERED: VOLTAREN ARTHRI20 GM T (07:35)
== END 2021-07-20 07:41 | disposition home or self-care (01) ==
LOC: ED 05:55
DX: S76.011A Strain of muscle, fascia and tendon of right hip, initial encounter (principal); I10 Essential (primary) hypertension; I48.91 Unspecified atrial fibrillation; Z88.8 Allergy status to other drugs, medicaments and biological substances; Z79.899 Other long term (current) drug therapy; Z86.73 Personal history of transient ischemic attack (TIA), and cerebral infarction without residual deficits; Z98.890 Other specified postprocedural states; W18.42XA Slipping, tripping and stumbling without falling due to stepping into hole or opening, initial encounter; Y93.89 Activity, other specified; Y92.89 Other specified places as the place of occurrence of the external cause; Y99.8 Other external cause status

== ENCOUNTER → 2021-09-13 | Outpatient (CLI) | payer OTHER ==
[~2021-09-13] MED LIST changes: +TYLENOL325 M1 PO; +VOLTAREN ARTHRI20 GM T
== END | disposition home or self-care (01) ==
LOC: MRI 10:38
PROVIDERS: ATTEND Family Medicine
DX: I63.89 Other cerebral infarction (principal); R53.1 Weakness

== ENCOUNTER 2022-05-01 01:36 | Emergency (ER) | payer OTHER ==
[~2022-05-01] VITALS: Ht 175.2 cm; Wt 93.0 kg
[2022-05-01 01:51] VITALS: BP 108/107
[2022-05-01] MEDS ORDERED: PENICILLIN VK500 MG PO (02:00)
== END 2022-05-01 02:21 | disposition home or self-care (01) ==
LOC: ED 01:36
DX: K02.9 Dental caries, unspecified (principal); Z98.890 Other specified postprocedural states; Z88.8 Allergy status to other drugs, medicaments and biological substances

== ENCOUNTER 2022-10-26 16:45 | Emergency (ER) | payer MEDICAID ==
[~2022-10-26] VITALS: Ht 175.2 cm; Wt 89.8 kg
[~2022-10-26 16:45] MED LIST changes: +ASPIRIN ADULT L81 M1 PO; +COREG6.25 MG PO; +GLIMEPIRIDE4 M1 PO; +PENICILLIN VK500 MG PO
[2022-10-26 16:52] VITALS: BP 176/105
[2022-10-26 17:19] LABS: BASO # 0.1 10*3/uL (0.0-0.1); BASO % 0.6 % (0.0-1.0); EOS # 0.1 10*3/uL (0.0-0.4); EOS % 1.7 % (1.0-4.0); HEMATOCRIT 45.1 % (42.0-52.0); LYMPH % 23.4 % (27.0-41.0); MEAN CELL VOLUME 85.1 fl (80.0-94.0); MEAN CORPUSCULAR HGB 29.4 pg (27.0-31.0); MEAN CORPUSCULAR HGB CONC 34.6 g/dl (33.0-37.0); MEAN PLATELET VOLUME 9.2 fl (9.6-12.3); MONO # 0.7 10*3/uL (0.1-1.0); MONO % 8.2 % (3.0-9.0); NEUT # 5.5 10*3/uL (2.3-7.9); NEUT % 65.4 % (47.0-73.0); PLATELET COUNT AUTOMATED 278 10*3/uL (130-400); RED CELL DISTRI WIDTH 12.6 % (0-14.5); WHITE BLOOD COUNT 8.4 10*3/uL (4.8-10.8)
[2022-10-26 17:45] LABS: ALKALINE PHOSPHATASE 78 U/L (46-116); BUN 10 mg/dl (9-23); CHLORIDE 103 mmol/L (98-107); LIPASE 38 U/L (12-53); POTASSIUM 3.6 mmol/L (3.4-5.1); SGPT/ALT 39 U/L (10-49); TOTAL PROTEIN 7.4 gm/dL (6.0-8.0)
[2022-10-26 17:48] LABS: ACT PARTIAL THROMBO TIME 29.1 SECONDS (20.0-32.1)
[2022-10-26 17:49] VITALS: BP 157/92
[2022-10-26] MEDS ORDERED: CARVEDILOL6.25 MG PO (17:50)
[2022-10-26] MEDS ORDERED: AMOXICILLIN500 M2 PO (17:50)
== END 2022-10-26 19:17 | disposition left against medical advice (07) ==
LOC: ED 16:45 → EDHOLD 19:16 → ED 19:16 → EDHOLD 20:01
PROVIDERS: Emergency Medicine
DX: R53.1 Weakness (principal); R51.9 Headache, unspecified; R20.0 Anesthesia of skin; Z88.8 Allergy status to other drugs, medicaments and biological substances; Z79.2 Long term (current) use of antibiotics; Z79.899 Other long term (current) drug therapy; Z79.82 Long term (current) use of aspirin

== ENCOUNTER → 2023-08-23 | Outpatient (CLI) | payer OTHER ==
[~2023-08-23] MED LIST changes: +CARVEDILOL6.25 MG PO
[2023-08-23 13:36] LABS: BASO # 0.1 10*3/uL (0.0-0.1); BASO % 0.6 % (0.0-1.0); EOS # 0.1 10*3/uL (0.0-0.4); EOS % 1.7 % (1.0-4.0); LYMPH # 2.2 10*3/uL (1.3-4.4); LYMPH % 28.4 % (27.0-41.0); MEAN CELL VOLUME 84.6 fl (80.0-94.0); MEAN CORPUSCULAR HGB 28.9 pg (27.0-31.0); MEAN CORPUSCULAR HGB CONC 34.1 g/dl (33.0-37.0); MEAN PLATELET VOLUME 9.5 fl (9.6-12.3); MONO # 0.6 10*3/uL (0.1-1.0); MONO % 7.8 % (3.0-9.0); NEUT # 4.7 10*3/uL (2.3-7.9); NEUT % 60.7 % (47.0-73.0); PLATELET COUNT AUTOMATED 231 10*3/uL (130-400); RED BLOOD COUNT 6.03 10*6/uL (4.50-5.90); RED CELL DISTRI WIDTH 12.3 % (0-14.5); WHITE BLOOD COUNT 7.7 10*3/uL (4.8-10.8)
[2023-08-23 13:59] LABS: ALKALINE PHOSPHATASE 92 U/L (46-116); BUN 9 mg/dl (9-23); CHLORIDE 101 mmol/L (98-107); CHOLESTEROL 206 mg/dL (<200); LDL CHOLESTEROL 129 mg/dL (9-159); POTASSIUM 3.8 mmol/L (3.4-5.1); SGPT/ALT 79 U/L (5-49); TOTAL PROTEIN 7.7 gm/dL (6.0-8.0); TRIGLYCERIDES 191 mg/dl (<150)
[2023-08-23 14:02] LABS: VITAMIN D, 25-HYDROXY 10.7 ng/mL (30-100)
== END | disposition home or self-care (01) ==
LOC: LAB 12:57
PROVIDERS: ATTEND Family Medicine
DX: Z12.5 Encounter for screening for malignant neoplasm of prostate (principal); I10 Essential (primary) hypertension; E78.00 Pure hypercholesterolemia, unspecified; R53.83 Other fatigue; E55.9 Vitamin D deficiency, unspecified; E11.9 Type 2 diabetes mellitus without complications; I63.9 Cerebral infarction, unspecified

== ENCOUNTER 2023-08-31 07:19 | Emergency (ER) | payer OTHER ==
[~2023-08-31] VITALS: Ht 175.2 cm; Wt 86.2 kg
[2023-08-31 07:24] VITALS: BP 152/89
[2023-08-31] MEDS ORDERED: diphenhydrAMINE hydrochloride 50 MG/ML VIAL IV ONE (07:40)
[2023-08-31] MEDS ORDERED: SODIUM CHLORIDE 0.9% 1,000 ML IV ONE (07:40)
[2023-08-31] MEDS ORDERED: Metoclopramide Hydrochloride 10 MG/2 ML AMP IV ONE (07:40)
[2023-08-31] MEDS ORDERED: FAMOTIDINE 50 ML IV ONE (07:40)
[2023-08-31 07:58] LABS: BASO % 0.6 % (0.0-1.0); EOS # 0.2 10*3/uL (0.0-0.4); EOS % 2.3 % (1.0-4.0); HEMATOCRIT 46.5 % (42.0-52.0); LYMPH # 2.2 10*3/uL (1.3-4.4); LYMPH % 31.2 % (27.0-41.0); MEAN CELL VOLUME 85.2 fl (80.0-94.0); MEAN CORPUSCULAR HGB 29.3 pg (27.0-31.0); MEAN CORPUSCULAR HGB CONC 34.4 g/dl (33.0-37.0); MEAN PLATELET VOLUME 9.1 fl (9.6-12.3); MONO # 0.7 10*3/uL (0.1-1.0); MONO % 10.2 % (3.0-9.0); NEUT # 3.8 10*3/uL (2.3-7.9); NEUT % 55.1 % (47.0-73.0); PLATELET COUNT AUTOMATED 208 10*3/uL (130-400); RED BLOOD COUNT 5.46 10*6/uL (4.50-5.90); RED CELL DISTRI WIDTH 12.6 % (0-14.5); WHITE BLOOD COUNT 6.9 10*3/uL (4.8-10.8)
[2023-08-31 08:28] LABS: ALKALINE PHOSPHATASE 75 U/L (46-116); BUN 12 mg/dl (9-23); CHLORIDE 103 mmol/L (98-107); LIPASE 47 U/L (12-53); POTASSIUM 3.3 mmol/L (3.4-5.1); SGPT/ALT 72 U/L (5-49); TOTAL PROTEIN 7.2 gm/dL (6.0-8.0)
[2023-08-31] MEDS ORDERED: POTASSIUM CHLORIDE 20 MEQ TAB PO ONE (08:45)
[2023-08-31] MEDS ORDERED: ONDANSETRON4 MG SL (08:57)
[2023-08-31] MEDS ORDERED: CIPRO500 MG PO (08:57)
== END 2023-08-31 09:28 | disposition home or self-care (01) ==
LOC: ED 07:19
PROVIDERS: Emergency Medicine
DX: R11.2 Nausea with vomiting, unspecified (principal); R19.7 Diarrhea, unspecified; E87.6 Hypokalemia; I10 Essential (primary) hypertension; E78.5 Hyperlipidemia, unspecified; I48.91 Unspecified atrial fibrillation; E11.9 Type 2 diabetes mellitus without complications; Z88.8 Allergy status to other drugs, medicaments and biological substances; Z95.5 Presence of coronary angioplasty implant and graft

== ENCOUNTER 2023-11-20 10:37 | Emergency (ER) | payer OTHER ==
[~2023-11-20] VITALS: Ht 175.2 cm; Wt 95.3 kg
[~2023-11-20 10:37] MED LIST changes: +CIPRO500 MG PO; +ONDANSETRON4 MG SL
[2023-11-20 10:53] VITALS: BP 164/108
[2023-11-20] MEDS ORDERED: METFORMIN XR500 MG PO (10:56)
[2023-11-20] MEDS ORDERED: ATORVASTATIN CA10 M1 PO (10:56)
[2023-11-20] MEDS ORDERED: LOSARTAN POTASS25 M1 PO (10:56)
[2023-11-20] MEDS ORDERED: SODIUM CHLORIDE 0.9% 1,000 ML IV ONE (11:05)
[2023-11-20] MEDS ORDERED: methylPREDNISolone sod succ 125 MG VIAL IV ONE (11:05)
[2023-11-20] MEDS ORDERED: diphenhydrAMINE hydrochloride 50 MG/ML VIAL IV ONE (11:10)
[2023-11-20] MEDS ORDERED: FAMOTIDINE 50 ML IV ONE (11:10)
[2023-11-20 11:21] LABS: BASO % 0.5 % (0.0-1.0); EOS # 0.2 10*3/uL (0.0-0.4); HEMATOCRIT 45.6 % (42.0-52.0); LYMPH # 2.1 10*3/uL (1.3-4.4); LYMPH % 25.9 % (27.0-41.0); MEAN CELL VOLUME 83.2 fl (80.0-94.0); MEAN CORPUSCULAR HGB 29.6 pg (27.0-31.0); MEAN CORPUSCULAR HGB CONC 35.5 g/dl (33.0-37.0); MEAN PLATELET VOLUME 9.4 fl (9.6-12.3); MONO # 0.6 10*3/uL (0.1-1.0); MONO % 7.9 % (3.0-9.0); NEUT # 5.2 10*3/uL (2.3-7.9); NEUT % 63.2 % (47.0-73.0); PLATELET COUNT AUTOMATED 207 10*3/uL (130-400); RED BLOOD COUNT 5.48 10*6/uL (4.50-5.90); RED CELL DISTRI WIDTH 12.6 % (0-14.5); WHITE BLOOD COUNT 8.1 10*3/uL (4.8-10.8)
[2023-11-20 11:52] LABS: BUN 7 mg/dl (9-23); CHLORIDE 108 mmol/L (98-107); POTASSIUM 3.7 mmol/L (3.4-5.1)
[2023-11-20] MEDS ORDERED: SEPTDS PO (12:44)
[2023-11-20] MEDS ORDERED: CEPHALEXIN500 M1 PO (12:44)
[2023-11-20] MEDS ORDERED: Sulfamethoxazole/Trimethopri 1 TAB TAB PO ONE (12:50)
[2023-11-20] MEDS ORDERED: CEPHALEXIN 500 MG CAP PO ONE (12:50)
== END 2023-11-20 13:19 | disposition home or self-care (01) ==
LOC: ED 10:37
PROVIDERS: Nurse Practitioner Family
DX: K13.0 Diseases of lips (principal); I10 Essential (primary) hypertension; Z88.8 Allergy status to other drugs, medicaments and biological substances; Z79.899 Other long term (current) drug therapy; Z79.82 Long term (current) use of aspirin; Z86.73 Personal history of transient ischemic attack (TIA), and cerebral infarction without residual deficits

== ENCOUNTER → 2024-07-30 | Outpatient (CLI) | payer OTHER ==
[~2024-07-30] MED LIST changes: +ATORVASTATIN CA10 M1 PO; +CEPHALEXIN500 M1 PO; +LOSARTAN POTASS25 M1 PO; +METFORMIN XR500 MG PO; +SEPTDS PO
[2024-07-30 09:17] LABS: HEMATOCRIT 49.1 % (42.0-52.0); MEAN CELL VOLUME 84.1 fl (80.0-94.0); MEAN CORPUSCULAR HGB 28.4 pg (27.0-31.0); MEAN CORPUSCULAR HGB CONC 33.8 g/dl (33.0-37.0); MEAN PLATELET VOLUME 9.1 fl (9.6-12.3); RED BLOOD COUNT 5.84 10*6/uL (4.50-5.90); RED CELL DISTRI WIDTH 12.7 % (0-14.5); WHITE BLOOD COUNT 7.7 10*3/uL (4.8-10.8)
[2024-07-30 09:52] LABS: ALKALINE PHOSPHATASE 98 U/L (46-116); BUN 9 mg/dl (9-23); CHLORIDE 99 mmol/L (98-107); CHOLESTEROL 211 mg/dL (<200); CPK 63 U/L (34-171); LDL CHOLESTEROL 151 mg/dL (9-159); POTASSIUM 3.2 mmol/L (3.4-5.1); SGPT/ALT 35 U/L (5-49); TRIGLYCERIDES 115 mg/dl (<150)
[2024-07-30 09:56] LABS: VITAMIN D, 25-HYDROXY 16.2 ng/mL (30-100)
== END | disposition home or self-care (01) ==
LOC: LAB 09:05
PROVIDERS: ATTEND Family Medicine
DX: Z12.5 Encounter for screening for malignant neoplasm of prostate (principal); E78.00 Pure hypercholesterolemia, unspecified; I10 Essential (primary) hypertension; E11.9 Type 2 diabetes mellitus without complications; R53.83 Other fatigue; E55.9 Vitamin D deficiency, unspecified

== ENCOUNTER 2024-09-04 23:24 | Emergency (ER) | payer OTHER ==
[~2024-09-04] VITALS: Ht 175.2 cm; Wt 82.6 kg
[2024-09-04 23:35] VITALS: BP 181/102
[2024-09-05 00:25] LABS: BASO # 0.1 10*3/uL (0.0-0.1); BASO % 0.6 % (0.0-1.0); EOS # 0.1 10*3/uL (0.0-0.4); EOS % 1.7 % (1.0-4.0); HEMATOCRIT 46.4 % (42.0-52.0); MEAN CELL VOLUME 83.3 fl (80.0-94.0); MEAN CORPUSCULAR HGB 28.4 pg (27.0-31.0); MEAN CORPUSCULAR HGB CONC 34.1 g/dl (33.0-37.0); MEAN PLATELET VOLUME 9.3 fl (9.6-12.3); MONO # 0.7 10*3/uL (0.1-1.0); NEUT # 4.4 10*3/uL (2.3-7.9); PLATELET COUNT AUTOMATED 227 10*3/uL (130-400); RED BLOOD COUNT 5.57 10*6/uL (4.50-5.90); RED CELL DISTRI WIDTH 12.4 % (0-14.5); WHITE BLOOD COUNT 8.1 10*3/uL (4.8-10.8)
[2024-09-05 00:50] LABS: BUN 13 mg/dl (9-23); CHLORIDE 99 mmol/L (98-107); POTASSIUM 3.8 mmol/L (3.4-5.1)
[2024-09-05] MEDS ORDERED: INSULIN REGULAR, HUMAN 1 UNIT/0.01 ML SC ONE (01:05)
[2024-09-05] MEDS ORDERED: Ketorolac Tromethamine 30 MG/ML VIAL IM ONE (01:05)
== END 2024-09-05 01:21 | disposition home or self-care (01) ==
LOC: ED 23:24
PROVIDERS: Internal Medicine
DX: E11.65 Type 2 diabetes mellitus with hyperglycemia (principal); M54.9 Dorsalgia, unspecified; Z88.1 Allergy status to other antibiotic agents; Z79.2 Long term (current) use of antibiotics; Z79.899 Other long term (current) drug therapy; Z79.84 Long term (current) use of oral hypoglycemic drugs; Z79.82 Long term (current) use of aspirin

== ENCOUNTER → 2024-09-12 | Outpatient (CLI) | payer OTHER | END | disposition home or self-care (01) | LOC: RAD 11:37 | PROVIDERS: ATTEND Family Medicine | DX: M48.02 Spinal stenosis, cervical region (principal); M50.322 Other cervical disc degeneration at C5-C6 level; M50.323 Other cervical disc degeneration at C6-C7 level ==

== ENCOUNTER → 2024-11-28 | Outpatient (CLI) | payer OTHER ==
[2024-11-28 08:46] LABS: BASO # 0.1 10*3/uL (0.0-0.1); BASO % 0.5 % (0.0-1.0); EOS # 0.2 10*3/uL (0.0-0.4); EOS % 1.7 % (1.0-4.0); MEAN CELL VOLUME 83.7 fl (80.0-94.0); MEAN CORPUSCULAR HGB 28.6 pg (27.0-31.0); MEAN PLATELET VOLUME 9.3 fl (9.6-12.3); MONO # 0.7 10*3/uL (0.1-1.0); MONO % 7.2 % (3.0-9.0); NEUT # 6.2 10*3/uL (2.3-7.9); NEUT % 64.9 % (47.0-73.0); NUCLEATED RED BLOOD CELL 0.0 % (0.0-0.0); NUCLEATED RED BLOOD CELL 0.0 10*3/uL (0.0-0.0); PLATELET COUNT AUTOMATED 232 10*3/uL (130-400); RED CELL DISTRI WIDTH 12.7 % (0-14.5)
[2024-11-28 08:57] LABS: ACT PARTIAL THROMBO TIME 24.8 SECONDS (20.0-32.1)
[2024-11-28 09:07] LABS: BUN 15 mg/dl (9-23); CPK 79 U/L (34-171); LDL CHOLESTEROL 119 mg/dL (9-159); SGPT/ALT 53 U/L (5-49)
== END | disposition home or self-care (01) ==
LOC: LAB 08:16
PROVIDERS: ATTEND Family Medicine
DX: J98.11 Atelectasis (principal); E11.9 Type 2 diabetes mellitus without complications; R06.02 Shortness of breath; K92.2 Gastrointestinal hemorrhage, unspecified; I51.7 Cardiomegaly; N40.0 Benign prostatic hyperplasia without lower urinary tract symptoms

== ENCOUNTER → 2025-02-06 | Outpatient (CLI) | payer OTHER | END | disposition home or self-care (01) | LOC: RESCLI 09:41 | PROVIDERS: ATTEND Family Medicine | DX: E11.9 Type 2 diabetes mellitus without complications (principal); I48.91 Unspecified atrial fibrillation; I10 Essential (primary) hypertension; E78.00 Pure hypercholesterolemia, unspecified; E55.9 Vitamin D deficiency, unspecified; R97.20 Elevated prostate specific antigen [PSA]; G31.84 Mild cognitive impairment of uncertain or unknown etiology; Z71.89 Other specified counseling; Z79.899 Other long term (current) drug therapy; Z88.8 Allergy status to other drugs, medicaments and biological substances ==

== ENCOUNTER → 2025-03-17 | Outpatient (CLI) | payer OTHER | END | disposition home or self-care (01) | LOC: LAB 17:05 | PROVIDERS: ATTEND Internal Medicine | DX: R59.0 Localized enlarged lymph nodes (principal); R06.00 Dyspnea, unspecified ==

== ENCOUNTER 2025-04-25 15:01 | Emergency (ER) | payer OTHER ==
[~2025-04-25] VITALS: Ht 175.2 cm; Wt 84.8 kg
[2025-04-25 15:11] VITALS: BP 130/103
[2025-04-25] MEDS ORDERED: TAMSULOSIN HCL0.4 MG PO (15:23)
[2025-04-25] MEDS ORDERED: ROSUVASTATIN CA40 MG PO (15:23)
[2025-04-25] MEDS ORDERED: LANTUS SOL100 UNIT/1 SC (15:25)
[2025-04-25] MEDS ORDERED: SODIUM CHLORIDE 0.9% 1,000 ML IV ONE (15:25)
[2025-04-25] MEDS ORDERED: MAGNESIUM SULFATE 100 ML IV ONE (15:25)
[2025-04-25 15:41] LABS: BASO # 0.1 10*3/uL (0.0-0.1); BASO % 0.5 % (0.0-1.0); EOS # 0.1 10*3/uL (0.0-0.4); EOS % 1.4 % (1.0-4.0); MEAN CELL VOLUME 84.1 fl (80.0-94.0); MEAN CORPUSCULAR HGB 28.7 pg (27.0-31.0); MEAN PLATELET VOLUME 9.5 fl (9.6-12.3); MONO # 0.8 10*3/uL (0.1-1.0); MONO % 7.5 % (3.0-9.0); NEUT # 6.2 10*3/uL (2.3-7.9); NEUT % 62.0 % (47.0-73.0); NUCLEATED RED BLOOD CELL 0.0 % (0.0-0.0); NUCLEATED RED BLOOD CELL 0.0 10*3/uL (0.0-0.0); PLATELET COUNT AUTOMATED 232 10*3/uL (130-400); RED CELL DISTRI WIDTH 12.3 % (0-14.5)
[2025-04-25 15:48] VITALS: BP 99/78
[2025-04-25 16:11] LABS: BUN 15 mg/dl (9-23); SGPT/ALT 37 U/L (5-49)
[2025-04-25 16:16] VITALS: BP 159/109
[2025-04-25] MEDS ORDERED: DILTIAZEM HCL IN NACL,ISO-OSM 5 ML IV ONE ×2 (16:20→16:35)
[2025-04-25 16:45] VITALS: BP 130/85
[2025-04-25 17:06] VITALS: BP 121/97
[2025-04-25 17:28] VITALS: BP 146/91
== END 2025-04-25 16:58 | disposition home or self-care (01) ==
LOC: ED 15:01 → EDHOLD 17:08 → ED 17:08
PROVIDERS: Student in an Organized Health Care Education/Training Program
DX: I48.91 Unspecified atrial fibrillation (principal); J45.909 Unspecified asthma, uncomplicated; E11.9 Type 2 diabetes mellitus without complications; Z88.8 Allergy status to other drugs, medicaments and biological substances

== ENCOUNTER → 2025-04-28 | Outpatient (CLI) | payer OTHER ==
[~2025-04-28] MED LIST changes: +LANTUS SOL100 UNIT/1 SC; +ROSUVASTATIN CA40 MG PO; +TAMSULOSIN HCL0.4 MG PO
== END | disposition home or self-care (01) ==
LOC: RESCLI 14:40
PROVIDERS: ATTEND Internal Medicine
DX: E11.9 Type 2 diabetes mellitus without complications (principal); I48.91 Unspecified atrial fibrillation; I10 Essential (primary) hypertension; E78.00 Pure hypercholesterolemia, unspecified; R97.20 Elevated prostate specific antigen [PSA]; R53.1 Weakness; Z79.899 Other long term (current) drug therapy